=== PATIENT | male | born 2000 | race Two or more races ===

== ENCOUNTER 2025-05-29 00:28 | Emergency (ER) | payer OTHER, SELFPAY ==
[~2025-05-29] VITALS: Ht 162.6 cm; Wt 74.6 kg
[2025-05-29 01:33] LABS: BASO # 0.0 10^3/uL (0.0-0.2); BASO % 0.7 % (0.0-1.0); EOS # 0.2 10^3/uL (0.0-0.5); EOS % 2.9 % (0.0-3.0); LYMPH # 2.9 10^3/uL (1.5-5.0); LYMPH % 49.1 % (24.0-44.0); MONO # 0.5 10^3/uL (0.0-0.8); MONO % 7.9 % (2.0-8.0); NEUTROPHILS # 2.3 10^3/uL (1.5-8.5); NEUTROPHILS % 39.1 % (36.0-66.0); PLATELET COUNT, AUTOMATED 231 10^3/uL (150-450)
[2025-05-29 01:57] LABS: CALCIUM LEVEL 8.7 MG/DL (8.5-10.1); CARBON DIOXIDE LEVEL 24 MMOL/L (20-31); CHLORIDE LEVEL 105 MMOL/L (98-107); CREATININE FOR GFR 0.79 MG/DL (0.70-1.30); GLOMERULAR FILTRATION RATE > 90.0 (>60); POTASSIUM SERUM 3.5 MMOL/L (3.5-5.1); SODIUM LEVEL 139 MMOL/L (136-145)
[2025-05-29 06:36] VITALS: BP 94/50; TEMP 98; O2SAT 98
== END 2025-05-29 06:37 | disposition home or self-care (01) ==
LOC: M ED 00:28
DX: T40.715A Adverse effect of cannabis, initial encounter (principal); F17.290 Nicotine dependence, other tobacco product, uncomplicated
CPT/HCPCS: 80048; 85025; 93005; 96374; 99285; J2060